=== PATIENT | male | born 1945 | race Caucasian/White ===

== ENCOUNTER 2019-12-20 14:11 | Inpatient (IN) ==
[2019-12-20] MEDS ORDERED: SODIUM CHLORIDE 0.9% 500 ML IV ONE (14:27)
[2019-12-20 14:50] LABS: INR 1.4 (0.9-1.1); Partial Thromboplastin Ratio 1.2; Partial Thromboplastin Time 33.5 Seconds (21.0-31.0); Prothrombin Time 14.2 Seconds (9.0-12.0)
[2019-12-20 14:51] LABS: Hematocrit (blood only) 32.9 % (42-52); Hemoglobin 11.2 g/dL (14.0-18.0); Mean Corpuscular Hemoglobin 31.2 pg (25-34); Mean Corpuscular Volume 91.6 fL (80-100); RDW Coefficient of Variation 16.1 % (11.5-14.5); RDW Standard Deviation 53.8 fL (36.4-46.3); Red Blood Count 3.59 M/uL (4.7-6.1); White Blood Count 5.58 K/uL (4.8-10.8)
[2019-12-20 14:53] LABS: Albumin Level 1.9 gm/dl (3.4-5.0); BUN Creatinine Ratio 13.4 (10-20); Bilirubin Direct 1.5 mg/dl (0-0.2); Calcium 8.4 mg/dl (8.5-10.1); Creatinine Clr Calc Pharmacy 51.7 ml/min; Est GFR (African American) 52.8; Est GFR (Non-African American) 45.5; Magnesium 1.5 mg/dl (1.8-2.4)
[2019-12-20 14:57] LABS: Albumin Globulin Ratio 0.5 (0.9-2); Bilirubin,Total 3.4 mg/dl (0.2-1); Globulin 3.7 gm/dl (2.5-4.0); Phosphorus 2.7 mg/dl (2.5-4.9); Total Protein 5.6 gm/dl (6.4-8.2); Troponin I 0.026 ng/ml (0-0.045)
[2019-12-20 15:02] LABS: Basophils # (auto) 0.01 K/uL (0-0.2); Basophils % (auto) 0.2 %; Eosinophils # (auto) 0.15 K/uL (0-0.5); Eosinophils % (auto) 2.7 %; Immature Granulocytes # (auto) 0.01 K/uL (0.00-0.02); Immature Granulocytes % (auto) 0.2 %; Lymphocytes % (auto) 17.9 %; Mean Platelet Volume 11.4 fL (7.4-10.4); Monocytes # (auto) 0.41 K/uL (0.11-0.59); Monocytes % (auto) 7.3 %; Neutrophils % (auto) 71.7 %; Platelet Count 66 K/uL (130-400); Platelet Estimate Decreased (Normal)
--- NOTE | 2019-12-20 15:03 | XRay Report ---
SINGLE VIEW CHEST CLINICAL HISTORY: Change in mental status. FINDINGS: An AP, portable, upright chest radiograph is obtained. No prior studies are available for c omparison at the time of dictation. The examination is degraded by portable technique and patient rot ation. The heart is enlarged noting atherosclerotic calcification of the thoracic aorta. The pulmona ry vasculature is noncongested. Atelectasis is seen at the lung bases. The lungs and pleural spaces a re otherwise clear. No pneumothorax is seen. The skeletal structures are osteopenic. The bony thorax is grossly intact. Cholecystectomy clips are noted in the right upper quadrant. IMPRESSION: Cardiomegaly with no acute cardiopulmonary abnormality. ACT 112: Negative or not required by law. Electronically signed by: Jostin Fung M.D. 12/20/2019 3:02 PM
[2019-12-20] MEDS ORDERED: OPTIRAY 320 125ml IV PRN (15:18)
--- NOTE | 2019-12-20 15:34 | CT Scan Report ---
CT angio neck with con HISTORY: Mental status change Stroke evaluation TECHNIQUE: Multiaxial CT angiography of the neck was performed IV contrast: 120 cc nonionic All darryl urements were calculated based on NASCET criteria. Maximum intensity projection images were also obt ained. A dose lowering technique was utilized adhering to the principles of ALARA. COMPARISON STUDY: None. FINDINGS: The aortic arch and proximal great vessels are widely patent. There is no significant sten osis, occlusion, or dissection identified within the bilateral common carotid, internal carotid, or v ertebral arteries. Minimal scattered plaque formation bilaterally primarily at the carotid bifurcations IMPRESSION: No significant stenosis, occlusion, or dissection identified within the carotid or vertebral arteries . Minimal scattered plaque formation ACT 112: Negative or not required by law. The above report was generated using voice recognition software. It may contain grammatical, syntax or spelling errors. Electronically signed by: Ronny Braxton M.D. 12/20/2019 3:33 PM
--- NOTE | 2019-12-20 15:38 | CT Scan Report ---
CT OF THE HEAD WITHOUT CONTRAST CLINICAL HISTORY: Stroke evaluation COMPARISON STUDY: No previous studies for comparison. TECHNIQUE: Helical axial images of the head were obtained without IV contrast. Automated exposure con trol was utilized for the study. A dose lowering technique was utilized adhering to the principles o f ALARA. FINDINGS: No acute intracranial hemorrhage, midline shift or mass effect is present. The ventricular system is unremarkable. The basilar cisterns are patent. There are old lacunar infarcts within the bi lateral cerebellar hemispheres. Note is made of a 1.5 cm hypodensity within the posterior left tempor al lobe on axial image 10 of 28. No extra-axial collections are present. There are no findings to sug gest acute dural sinus thrombosis or acute territorial infarct. No significant calvarial abnormalitie s are present. Visualized portions of the sinuses and mastoid air cells are clear. IMPRESSION: 1. No acute intracranial hemorrhage or mass effect. 2. 1.5 cm hypodensity within the posterior left temporal lobe. This could reflect a small age indeter minate infarct. 3. 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 ACT 112: Negative or not required by law. Electronically signed by: Bird Conroy M.D. 12/20/2019 3:36 PM
--- NOTE | 2019-12-20 15:39 | CT Scan Report ---
CT ANGIOGRAM OF THE BRAIN CLINICAL HISTORY: Strokelike symptoms. COMPARISON STUDY: Unenhanced CT of the brain performed concurrently on 12/20/2019. TECHNIQUE: Following the IV administration of 119 cc of Optiray 320, CT angiogram of the brain was pe rformed from the skull base to the vertex. Images are reviewed in the axial, sagittal, and coronal pl anes. 3-D MIPS images are created and assessed. IV contrast was administered without complication. A dose lowering technique was utilized adhering to the principles of ALARA. 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 Chronic lacunar infarcts are noted in the cerebellum. There is no hemorrh age, mass effect, or evidence of acute territorial ischemia by CT criteria. There is no evidence of e nhancing mass lesion on the angiogram phase images. No extra-axial fluid collection is seen. Whitman-whi te matter differentiation is preserved. Ventricles, sulci, and cisterns: Prominent secondary to involutional change. CT angiogram of the brain: There is atherosclerotic calcification of the cavernous carotid and verteb ral arteries. The internal carotid arteries are widely patent, as are the anterior and middle cerebra l arteries. The vertebrobasilar system and posterior cerebral arteries are widely patent. The left ve rtebral artery is dominant. There is no aneurysm, high-grade stenosis, or focal vessel cutoff identif ied throughout the intracranial circulation. Dural sinuses: Clear as visualized. Orbits: The bony orbits are intact. The orbital contents are normal as visualized noting bilateral oc ular lens implants. Sinuses and mastoids: The visualized paranasal sinuses are clear. There are small mastoid effusions. Calvarium: Unremarkable. IMPRESSION: 1. There is no hemorrhage, mass effect, or evidence of acute territorial ischemia by CT criteria noti ng angiographic phase technique. 2. Unremarkable CT angiogram of the brain. ACT 112: Negative or not required by law. Electronically signed by: Jostin Fung M.D. 12/20/2019 3:38 PM
[2019-12-20 15:51] LABS: Appearance Urine Clear (Clear); Bilirubin Urine Negative (Negative); Blood Urine Negative (Negative); Color Urine Yellow; Glucose Urine UA Negative (Negative); Ketones Urine Negative (Negative); Leukocyte Esterase Urine Negative (Negative); Nitrite Urine Negative (Negative); Protein Urine Negative (Negative); Specific Gravity Urine 1.015 (1.000-1.030); Urobilinogen Urine Negative (Negative); pH Urine 7.5 (4.5-7.5)
[2019-12-20] MEDS: MAGNESIUM SULFATE / D5W 1 GM/100 ML BAG IV SCH ×2 (16:01→16:24)
[2019-12-20] MEDS ORDERED: LACTULOSE SYRUP 30 GM/45 ML UDP PO STA (16:14)
--- NOTE | 2019-12-20 16:18 | Emergency Department Note ---
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 PLAN: Disposition: Admit MEDICAL DECISION MAKING: The patient is a pleasant 74-year-old gentleman with a past medical history of Lenz cirrhosis, hyperammonemia on lactulose, history of CVA presents emergency department accompanied by his for concern for increased confusion and difficulty with speech over the past 2 days while they have been at their camp over the past week. They are from several outings away and came to [facility] as they are the closest hospital from their camp that will take their insurance. Prior to this the reports the patient is being been feeling healthy and was doing well at camp until couple of days ago. The reports he has been only having 1 bowel movement a day despite being on lactulose. She denies any fevers, chills, cough, congestion, nausea, vomiting, diarrhea, urinary symptoms. They deny any known contacts with individuals diagnosed with COVID-19. On arrival the patient is in no acute distress, afebrile stable vital signs. He has no focal neuro deficits at this time but does exhibit slow processing and responses which the reports is not his nor mal. He does have subtle jaundice which the patient's reports is his baseline in the setting of his Lenz cirrhosis. EKG without evidence of acute ischemia. CXR negative. WBC within normal limits. H/H 11.2/32.9 and platelets 66K in the setting of the patient's history of Lenz cirrhosis without prior values for comparison. INR is 1.4 in the setting of the patient's cirrhosis. Creatinine 1.5 without prior values for comparison. Magnesium 1.5 with repletion provided. Electrolytes otherwise unremarkable. LFTs with a total bilirubin of 3.4 and direct bilirubin of 1.5 with AST 67 and alk phos 187 again without prior values for comparison. Patient's ammonia is 81 which certainly can be contributing to the patient's symptoms. Lactulose ordered. Troponin is 0.026, within normal limits. UA negative for infection. CT of the head and neck was performed and demonstrates old lacunar infarcts in bilateral cerebellar hemispheres but also a 1.5 cm hypodensity in the posterior left temporal lobe that reflects a small age-indeterminate infarct which given the patient's symptoms over the past week could also be a contributing factor. Given this, reasonable to admit the patient for further evaluation. The patient and his are agreeable with this plan. Case was discussed with Dr. Ocampo, [facility] hospitalist, who will evaluate the patient for admission. Triage Nursing notes reviewed and agree them. Additional history obtained from Prior medical records reviewed Vital Signs: reviewed and remarkable for no significant abnormalities Differential diagnosis: Infection, dehydration, metabolic abnormality, hypo/hyperglycemia, electrolyte disturbance, anemia, hypoxia, cardiac sources, intracerebral event, toxicologic, neurologic, as well as other pathologies. ER treatment provided: See below. Diagnostics interpreted by me: ECG: Normal sinus rhythm, 65 bpm, no ectopy, no overt ST elevation or depression, QTC 428, QRS 80. Cardiac Monitoring: An order for continuous cardiac monitoring was placed and demonstrated normal sinus rhythm, 65 bpm, no ectopy. Laboratory studies: See below Imaging studies: SINGLE VIEW CHEST CLINICAL HISTORY: Change in mental status. FINDINGS: An AP, portable, upright chest radiograph is obtained. No prior s tudies are available for comparison at the time of dictation. The examination is degraded by portable technique and patient rotation. The heart is enlarged noting atherosclerotic calcification of the thoracic aorta. The pulmonary vasculature is noncongested. Atelectasis is seen at the lung bases. The lungs and pleural spaces are otherwise clear. No pneumothorax is seen. The skeletal structures are osteopenic. The bony thorax is grossly intact. Cholecystectomy clips are noted in the right upper quadrant. IMPRESSION: Cardiomegaly with no acute cardiopulmonary abnormality. -- CT OF THE HEAD WITHOUT CONTRAST CLINICAL HISTORY: Stroke evaluation COMPARISON STUDY: No previous studies for comparison. TECHNIQUE: Helical axial images of the head were obtained without IV contrast. Automated exposure control was utilized for the study. A dose lowering technique was utilized adhering to the principles of ALARA. FINDINGS: No acute intracranial hemorrhage, midline shift or mass effect is pre sent. The ventricular system is unremarkable. The basilar cisterns are patent. There are old lacunar infarcts within the bilateral cerebellar hemispheres. Note is made of a 1.5 cm hypodensity within the posterior left temporal lobe on axial image 10 of 28. No extra-axial collections are present. There are no findings to suggest acute dural sinus thrombosis or acute territorial infarct. No signific ant calvarial abnormalities are present. Visualized portions of the sinuses and mastoid air cells are clear. IMPRESSION: 1. No acute intracranial hemorrhage or mass effect. 2. 1.5 cm hypodensity within the posterior left temporal lobe. This could reflect a small age indeterminate infarct. 3. 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 -- CT ANGIOGRAM OF THE BRAIN CLINICAL HISTORY: Strokelike symptoms. COMPARISON STUDY: Unenhanced CT of the brain performed concurrently on 12/20/2019. TECHNIQUE: Following the IV administration of 119 cc of Optiray 320, CT angiogram of the brain was performed from the skull base to the vertex. Images are reviewed in the axial, sagittal, and coronal planes. 3-D MIPS images are created and assessed. IV contrast was administered without complication. A dose lowering technique was utilized adhering to the principles of ALARA. CT DOSE: 1137.12 mGy.cm FINDINGS: Brain parenchyma: There is age-related involutional change noting mild subcortical and periventricular microangiopathic disease. Chronic lacunar infarcts are noted in the cerebellum. There is no hemorrhage, mass effect, or evidence of acute territorial ischemia by CT criteria. There is no evidence of enhancing mass lesion on the angiogram phase images. No extra-axial fluid collection is seen. Whitman-white matter differentiation is preserved. Ventricles, sulci, and cisterns: Prominent secondary to involutional change. CT angiogram of the brain: There is atherosclerotic calcification of the cavernous carotid and vertebral arteries. The internal carotid arteries are widely patent, as are the anterior and middle cerebral arteries. The vertebrobasilar system and posterior cerebral arteries are widely patent. The left vertebral artery is dominant. There is no aneurysm, high-grade stenosis, or focal vessel cutoff identified throughout the intracranial circulation. Dural sinuses: Clear as visualized. Orbits: The bony orbits are intact. The orbital contents are normal as visualized noting bilateral ocular lens implants. Sinuses and mastoids: The visualized paranasal sinuses are clear. There are small mastoid effusions. Calvarium: Unremarkable. IMPRESSION: 1. There is no hemorrhage, mass effect, or evidence of acute territorial ischemia by CT criteria noting angiographic phase technique. 2. Unremarkable CT angiogram of the brain. -- CT angio neck with con HISTORY: Mental status change Stroke evaluation TECHNIQUE: Multiaxial CT angiography of the neck was performed IV contrast: 120 cc nonionic All measurements were calculated based on NASCET criteria. Maximum intensity projection images were also obtained. A dose lowering technique was utilized adhering to the principles of ALARA. COMPARISON STUDY: None. FINDINGS: The aortic arch and proximal great vessels are widely patent. There is no significant stenosis, occlusion, or dissection identified within the bilateral common carotid, internal carotid, or vertebral arteries. Minimal scattered plaque formation bilaterally primarily at the carotid bifurcations IMPRESSION: No significant stenosis, occlusion, or dissection identified within the carotid or vertebral arteries. Minimal scattered plaque formation Consultation(s): Case was discussed with Dr. Ocampo, [facility] hospitalist, who will evaluate the patient for admission. HPI: The patient is a pleasant 74-year-old gentleman with a past medical history of Lenz cirrhosis, hyperammonemia on lactulose, history of CVA presents emergency department accompanied by his for concern for increased confusion and difficulty with speech over the past 2 days while they have been at their camp over the past week. They are from several outings away and came to [facility] as they are the closest hospital [place] that will take their insurance. Prior to this the reports the patient is being been feeling healthy and was doing well at camp until couple of days ago. The reports he has been only having 1 bowel movement a day despite being on lactulose. She denies any fevers, chills, cough, congestion, nausea, vomiting, diarrhea, urinary symptoms. They deny any known contacts with individuals diagnosed with COVID-19. ROS: See above HPI for pertinent positives & negatives. A total of 10 systems reviewed and were otherwise negative. PAST MEDICAL HISTORY:See Below PAST SURGICAL HISTORY:See Below FAMILY HISTORY:See Below SOCIAL HISTORY:See Below HOME MEDICATIONS:See Below ALLERGIES:See Below VITALS:See Below PHYSICAL EXAMINATION: GENERAL: Awake, alert, Chronically ill-appearing, in no distress HENT: Normocephalic, atraumatic. Oropharynx with dry mucous membranes and otherwise unremarkable. EYES: Normal conjunctiva. Mild icterus. EOMI. No nystamgus. PEARRL. NECK: Supple. No nuchal rigidity. FROM. No JVD. RESPIRATORY: Clear to auscultation. CARDIAC: Regular rate, normal rhythm. Extremities warm and well perfused. Pulses equal. ABDOMEN: Soft, non-distended. No tenderness to palpation. No rebound or guarding. No masses. RECTAL: Deferred. MUSCULOSKELETAL: Chest examination reveals no tenderness. The back is symmetrical on inspection without obvious abnormality. There is no CVA tenderness to palpation. No joint edema. LOWER EXTREMITIES: Calves are equal size bilaterally and non-tender. 2+ BLE pitting edema. No discoloration. NEURO: No focal sensory or motor deficits noted. He does have slow mental processing and is slow to respond but does not have any overt dysarthria or word finding difficulty. There is subtle asterixis of bilateral upper extremities. SKIN: Mild Jaundice No rash noted. Buddy Proctor MD Past Med/Surg History Medical History Diabetes History of CVA (cerebrovascular accident) LENZ (nonalcoholic steatohepatitis) Social History Preferred Language: Ecuadorean Communication Ability: Effective Choker Setter Required: No Beliefs That Will Affect Care: None Current Living Situation: Spouse Other Information That Helps Us Care for You: No Feels Safe at Home: Yes Safety Concerns: Feels Safe At This Time Smoking Status: Never smoker Do You Dip or Chew Tobacco: No ; Second Hand Exposure: No ; Tobacco Cessation Education Requested by Patient: No Hx Alcohol Use: No Hx Substance Use: No Allergies Allergies Allergy/AdvReac Type Severity Reaction Status Date / Time pollen extracts Allergy Intermediate ITCHY Verified 12/20/19 15:10 EYES, SNEEZING, CONGESTION rofecoxib [From Vioxx] Allergy Unknown COULDN'T Verified 12/20/19 15:10 REMEMBER morphine AdvReac Intermediate Vomiting Verified 12/20/19 15:10 Home Meds Home Medications Medication Instructions Recorded Confirmed aspirin [Aspir-81] 81 mg PO DAILY 12/20/19 12/20/19 atorvastatin 20 mg PO HS 12/20/19 12/20/19 esomeprazole magnesium [Nexium] 0 mg PO DAILY 12/20/19 12/20/19 ferrous sulfate 325 mg PO DAILY 12/20/19 12/20/19 furosemide 40 mg PO DAILY 12/20/19 12/20/19 insulin asp prt-insulin aspart 24 unit SUBCUT BID 12/20/19 12/20/19 [Novolog Mix 70-30FlexPen U-100] insulin aspart U-100 [Novolog 0 unit SUBCUT AC 12/20/19 12/20/19 Flexpen U-100 Insulin] lactulose 45 ml PO ACHS 12/20/19 12/20/19 loratadine [Allergy Relief 10 mg PO DAILY 12/20/19 12/20/19 (loratadine)] magnesium oxide 400 mg PO DAILY 12/20/19 12/20/19 multivitamin 1 tab PO DAILY 12/20/19 12/20/19 potassium chloride 10 meq PO DAILY 12/20/19 12/20/19 rifaximin [Xifaxan] 550 mg PO BID 12/20/19 12/20/19 spironolactone 50 mg PO DAILY 12/20/19 12/20/19 Results & Data (ED) Vital Signs Vital Signs - 24 hr 12/20/19 14:25 12/20/19 15:00 12/20/19 16:04 Temperature 36.8 C Temperature Source Oral Pulse Rate 71 66 66 Pulse Rate from SpO2 Sensor 65 Respiratory Rate 18 11 L 11 L Respiratory Effort / Characteristics Non-Labored Spontaneous Respiratory Depth Normal Respiratory Pattern Regular Blood Pressure 113/70 115/75 124/71 Blood Pressure Mean 84 88 91 Blood Pressure Position Lying Pulse Oximetry 97 99 Oxygen Delivery Method Room Air Sepsis Recent Fever Within 48 Hours No Sepsis New/Unexplained Change in Mental Status No Sepsis Action Taken by Nursing No Action Required Laboratory Data Attestation: I reviewed the patient's lab results. Result diagrams: 12/20/19 13:30 12/20/19 13:30 Lab Results 12/20/19 12/20/19 12/20/19 Range/Units 13:30 13:30 13:30 WBC 5.58 (4.8-10.8) K/uL RBC 3.59 L (4.7-6.1) M/uL Hgb 11.2 L (14.0-18.0) g/dL Hct 32.9 L (42-52) % MCV 91.6 (80-100) fL MCH 31.2 (25-34) pg MCHC 34.0 (32-36) g/dL RDW Std Deviation 53.8 H (36.4-46.3) fL RDW Coeff of Harmony 16.1 H (11.5-14.5) % Plt Count 66 L (130-400) K/uL MPV 11.4 H (7.4-10.4) fL Immature Gran % (Auto) 0.2 % Neut % (Auto) 71.7 % Lymph % (Auto) 17.9 % [place] % (Auto) 7.3 % Eos % (Auto) 2.7 % Baso % (Auto) 0.2 % Neut # (Auto) 4.00 (1.4-6.5) K/uL Lymph # (Auto) 1.00 L (1.2-3.4) K/uL [place] # (Auto) 0.41 (0.11-0.59) K/uL Eos # (Auto) 0.15 (0-0.5) K/uL Baso # (Auto) 0.01 (0-0.2) K/uL Immature Gran # (Auto) 0.01 (0.00-0.02) K/uL Platelet Estimate Decreased L (Normal) PT 14.2 H (9.0-12.0) Seconds INR 1.4 H (0.9-1.1) APTT 33.5 H (21.0-31.0) Seconds PTT Ratio 1.2 Sodium 134 L (136-145) mmol/L Potassium 5.0 (3.5-5.1) mmol/L Chloride 106 (98-107) mmol/L Carbon Dioxide 21 (21-32) mmol/L Anion Gap 7.0 (3-11) BUN 20 H (7-18) mg/dl Creatinine 1.50 H (0.6-1.4) mg/dl Est Cr Clr Drug Dosing 51.7 ml/min Est GFR ( Amer) 52.8 Est GFR (Non-Af Amer) 45.5 BUN/Creatinine Ratio 13.4 (10-20) Glucose 185 H (70-99) mg/dl Calcium 8.4 L (8.5-10.1) mg/dl Phosphorus 2.7 (2.5-4.9) mg/dl Magnesium 1.5 L (1.8-2.4) mg/dl Total Bilirubin 3.4 H (0.2-1) mg/dl Direct Bilirubin 1.5 H (0-0.2) mg/dl AST 67 H (15-37) U/L ALT 38 (12-78) U/L Alkaline Phosphatase 187 H (45-117) U/L Ammonia (11-32) umol/L Troponin I 0.026 (0-0.045) ng/ml Total Protein 5.6 L (6.4-8.2) gm/dl Albumin 1.9 L (3.4-5.0) gm/dl Globulin 3.7 (2.5-4.0) gm/dl Albumin/Globulin Ratio 0.5 L (0.9-2) Urine Color Urine Appearance (Clear) Urine pH (4.5-7.5) Ur Specific [place] (1.000-1.030) Urine Protein (Negative) Urine Glucose (UA) (Negative) Urine Ketones (Negative) Urine Blood (Negative) Urine Nitrite (Negative) Urine Bilirubin (Negative) Urine Urobilinogen (Negative) Ur Leukocyte Esterase (Negative) 12/20/19 12/20/19 Range/Units 15:29 15:42 WBC (4.8-10.8) K/uL RBC (4.7-6.1) M/uL Hgb (14.0-18.0) g/dL Hct (42-52) % MCV (80-100) fL MCH (25-34) pg MCHC (32-36) g/dL RDW Std Deviation (36.4-46.3) fL RDW Coeff of Harmony (11.5-14.5) % Plt Count (130-400) K/uL MPV (7.4-10.4) fL Immature Gran % (Auto) % Neut % (Auto) % Lymph % (Auto) % [place] % (Auto) % Eos % (Auto) % Baso % (Auto) % Neut # (Auto) (1.4-6.5) K/uL Lymph # (Auto) (1.2-3.4) K/uL [place] # (Auto) (0.11-0.59) K/uL Eos # (Auto) (0-0.5) K/uL Baso # (Auto) (0-0.2) K/uL Immature Gran # (Auto) (0.00-0.02) K/uL Platelet Estimate (Normal) PT (9.0-12.0) Seconds INR (0.9-1.1) APTT (21.0-31.0) Seconds PTT Ratio Sodium (136-145) mmol/L Potassium (3.5-5.1) mmol/L Chloride (98-107) mmol/L Carbon Dioxide (21-32) mmol/L Anion Gap (3-11) BUN (7-18) mg/dl Creatinine (0.6-1.4) mg/dl Est Cr Clr Drug Dosing ml/min Est GFR ( Amer) Est GFR (Non-Af Amer) BUN/Creatinine Ratio (10-20) Glucose (70-99) mg/dl Calcium (8.5-10.1) mg/dl Phosphorus (2.5-4.9) mg/dl Magnesium (1.8-2.4) mg/dl Total Bilirubin (0.2-1) mg/dl Direct Bilirubin (0-0.2) mg/dl AST (15-37) U/L ALT (12-78) U/L Alkaline Phosphatase (45-117) U/L Ammonia 81.8 H (11-32) umol/L Troponin I (0-0.045) ng/ml Total Protein (6.4-8.2) gm/dl Albumin (3.4-5.0) gm/dl Globulin (2.5-4.0) gm/dl Albumin/Globulin Ratio (0.9-2) Urine Color Yellow Urine Appearance Clear (Clear) Urine pH 7.5 (4.5-7.5) Ur Specific [place] 1.015 (1.000-1.030) Urine Protein Negative (Negative) Urine Glucose (UA) Negative (Negative) Urine Ketones Negative (Negative) Urine Blood Negative (Negative) Urine Nitrite Negative (Negative) Urine Bilirubin Negative (Negative) Urine Urobilinogen Negative (Negative) Ur Leukocyte Esterase Negative (Negative) Administered Medications Atorvastatin Calcium (Lipitor) 40 mg PO [facility] Stop: 01/19/20 20:59 Last Admin: 12/20/19 22:28 Dose: 40 mg Documented by: [id number] Insulin Aspart (Novolog Flexpen) 0 units SC [facility] Stop: 01/19/20 20:59 Last Admin: 12/20/19 22:28 Dose: 14 units Documented by: [id number] Cosigned by: [id number] Lactulose (Chronulac) 30 gm PO [facility] Stop: 01/19/20 20:59 Last Admin: 12/20/19 22:28 Dose: 30 gm Documented by: [id number] Rifaximin (Xifaxan) 550 mg PO BID [facility] Stop: 01/19/20 20:59 Last Admin: 12/20/19 22:28 Dose: 550 mg Documented by: [id number] Discontinued Medications Sodium Chloride (Nss) 500 mls @ 999 mls/hr IV .Q31M ONE Stop: 12/20/19 14:57 Last Infusion: 12/20/19 16:00 Dose: 0 mls/hr Documented by: [id number] Admin: 12/20/19 15:07 Dose: 999 mls/hr Documented by: [id number] Magnesium Sulfate/Dextrose (Magnesium Sulfate / D5w) 1 gm in 100 mls @ 100 mls/hr IV Q1H [facility] Stop: 12/20/19 17:36 Last Infusion: 12/20/19 18:44 Dose: 0 mls/hr Documented by: [id number] Admin: 12/20/19 16:24 Dose: 100 mls/hr Documented by: [id number] Infusion: 12/20/19 16:24 Dose: 100 mls/hr Documented by: [id number] Admin: 12/20/19 16:01 Dose: 100 mls/hr Documented by: [id number] Insulin Glargine (Lantus Solostar Pen) 15 units SC TODAY@2100 [place] Stop: 12/20/19 21:01 Last Admin: 12/20/19 22:39 Dose: 15 units Documented by: [id number] Cosigned by: [id number] Ioversol (Optiray 320 125ml) 119 ml IV ONCE PRN PRN Reason: Interaction Checking Stop: 12/24/19 15:17 Last Admin: 12/20/19 15:18 Dose: 119 ml Documented by: [id number] Lactulose (Chronulac) 30 gm PO NOW STA Stop: 12/20/19 16:15 Last Admin: 12/20/19 16:29 Dose: 30 gm Documented by: [id number] Blood Pressure Blood Pressure Findings: Normal blood pressure Discharge Plan Visit Data *Final* Discharge Date/Time: 12/20/19 18:26 Chief Complaint: Confusion ED Provider: Buddy Proctor Discharge Problem: Hyperammonemia, Acute confusion, Slow rate of speech, 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
--- NOTE | 2019-12-20 16:23 | Electrocardiogram Report ---
Test Reason : Blood Pressure : / mmHG Vent. Rate : 065 BPM Atrial Rate : 065 BPM P-R Int : 208 ms QRS Dur : 080 ms QT Int : 412 ms P-R-T Axes : 027 -07 028 degrees QTc Int : 428 ms Normal sinus rhythm Normal ECG No previous ECGs available Confirmed by Sherif Moon ([id number]) on 12/20/2019 4:23:05 PM Referred By: REFERRED SELF Confirmed By:Sherif Moon
--- NOTE | 2019-12-20 16:30 | History & Physical Report ---
Date of Service December 20, 2019 Assessment & Plan (1) Encephalopathy: Patient is brought in with encephalopathy having decreased functioning at home. This could be multifactorial being metabolic encephalopathy from hyperammonemia from his chronic liver disease could be from his stroke certainly concern for infectious etiologies have been evaluated with a negative urinalysis and negative chest x-ray on presentation and negative clinical examination. Will determine if these improve will he reduce his ammonia and further gain information about this possible age-indeterminate stroke seen on CT scan. (2) CVA (cerebral vascular accident): Patient will be admitted on the stroke order set. This will be non-TPA stroke order set given he is out of the timeframe. This 1.5 cm age- indeterminate lesion be further evaluated by MRI scan. At this time is maintained on baby aspirin ~can further identify if this is an acute stroke or not. Secondary risk prevention with atorvastatin will increase to 40 cautiously in the face of his liver disease (3) LOMBARDO (nonalcoholic steatohepatitis): Patient reportedly with less stool output than usual and ammonia level is elevated. Patient will be continued on Xifaxan 550 twice daily Spironolactone 50 a day will increase his lactulose to 45 4 times a day reliably and then increase it if he does not have bowel movements. We will watch his ammonia daily. Patient is elevation of his INR at baseline 1.4. He also has elevation of both direct and indirect bilirubin. Given his chronic liver disease he will have a hepatic Doppler look for hepatic vein thrombosis if his INR does creep upward he may require some vitamin K he is also thrombocytopenic which could be from his chronic liver disease and splenomegaly. (4) Diabetes: Patient be on basal bolus insulin with glycemic consult and A1c checked in the morning Patient typically takes 70/30 insulin 24 units twice daily with a sliding scale on top of this. 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 The reports he has been only having 1 bowel movement a day despite being on lactulose. She denies any fevers, chills, cough, congestion, nausea, vomiting, diarrhea, urinary symptoms. They deny any known contacts with individuals diagnosed with COVID-19. Patient is also diabetic typically taking 70/30 insulin 24 units twice daily with sliding scale NovoLog on top of this He does have subtle jaundice which the patient's reports is his baseline in the setting of his Lombardo cirrhosis. Patient has an ammonia level of 81 does not know his normal baseline level. . UA negative for infection. CT of the head and neck was performed and demonstrates old lacunar infarcts in bilateral cerebellar hemispheres but also a 1.5 cm hypodensity in the posterior left temporal lobe that reflects a small age-indeterminate infarct which given the patient's symptoms over the past week could also be a contributing factor. Allergies Allergy/AdvReac Type Severity Reaction Status Date / Time pollen extracts Allergy Intermediate ITCHY Verified 12/20/19 15:10 EYES, SNEEZING, CONGESTION rofecoxib [From Vioxx] Allergy Unknown COULDN'T Verified 12/20/19 15:10 REMEMBER morphine AdvReac Intermediate Vomiting Verified 12/20/19 15:10 Home Medications Home Medications Medication Instructions Recorded Confirmed Type aspirin [Aspir-81] 81 mg PO DAILY 12/20/19 12/20/19 History atorvastatin 20 mg PO HS 12/20/19 12/20/19 History esomeprazole magnesium [Nexium] 0 mg PO DAILY 12/20/19 12/20/19 History ferrous sulfate 325 mg PO DAILY 12/20/19 12/20/19 History furosemide 40 mg PO DAILY 12/20/19 12/20/19 History insulin asp prt-insulin aspart 24 unit SUBCUT BID 12/20/19 12/20/19 History [Novolog Mix 70-30FlexPen U-100] insulin aspart U-100 [Novolog 0 unit SUBCUT AC 12/20/19 12/20/19 History Flexpen U-100 Insulin] lactulose 45 ml PO ACHS 12/20/19 12/20/19 History loratadine [Allergy Relief 10 mg PO DAILY 12/20/19 12/20/19 History (loratadine)] magnesium oxide 400 mg PO DAILY 12/20/19 12/20/19 History multivitamin 1 tab PO DAILY 12/20/19 12/20/19 History potassium chloride 10 meq PO DAILY 12/20/19 12/20/19 History rifaximin [Xifaxan] 550 mg PO BID 12/20/19 12/20/19 History spironolactone 50 mg PO DAILY 12/20/19 12/20/19 History Past Med/Surg History Medical History (Updated 12/20/19 @ 16:29 by Kayden Ocampo MD) Diabetes Social History Feels Safe at Home: Yes Smoking Status: Never smoker Review of Systems Review of Systems: Mild distress and fatigue no headache, blurry or double vision no speech or swallowing issues no chest pain, pressure or palpitations no shortness of breath, cough or wheezes no abdominal pain, nausea or vomiting, diarrhea or constipation no dysuria, hematuria or frequency no focal joint pain or swelling no back pain, CVA tenderness or radicular pain no bruising, bleeding or rashes no focal signs of weakness or numbness or altered sensation no complaints or anxiety or depression.. Physical Exam Physical Exam: The patient appeared well nourished and normally developed. Vital signs as documented. Head exam is normocephalic atraumatic no scleral icterus Neck is without JVD, thyromegaly, or carotid bruits. Lungs are clear to auscultation, no focal loss of breath sounds Cardiac exam, Rhythm is regular.. No murmurs, rubs or gallops. Abdominal exam reveals normal bowel sounds, soft non tender, no masses Extremities are nonedematous and both pedal pulses are normal. Neurologic exam is alert and oriented, no focal loss of strength or sensation Skin is without bruises or rashes Psychologically is without concerns for anxiety or depression Results & Data Results & Data ([facility]) Vital Signs (Past 12 Hours) Vital Signs Temp Pulse Resp BP Pulse Ox 12/20/19 14:25 98.2 F 71 18 113/70 97 PG Care Time/CCT Total # of Minutes Spent Total Time Spent with Patient: Total time spent is greater than 50% in coordination of care (as documented) at patient's floor/unit and/or counseling patient: Coding Level of Care Code 15542 Initial Inpt Care Lvl 3 Diagnoses Encephalopathy G93.40 CVA (cerebral vascular accident) I63.9 LOMBARDO (nonalcoholic steatohepatitis) K75.81 Diabetes E11.9 DVT prophylaxis Z29.9
[2019-12-20] MEDS ORDERED: DEXTROSE 50% 50 ML SYRINGE IV PRN (18:42)
[2019-12-20] MEDS ORDERED: ONDANSETRON INJ 2 MG/ML 2 ML VIAL IV PRN (18:42)
[2019-12-20] MEDS ORDERED: GLUCOSE 10 TABS/TUBE PO PRN (18:42)
[2019-12-20] MEDS ORDERED: GLUCAGON FOR INJ 1 MG VIAL SQ PRN (18:42)
[2019-12-20] MEDS ORDERED: SODIUM CHLORIDE 0.9% 1000ML 1,000 ML IV SCH (18:42)
[2019-12-20] MEDS ORDERED: ALUMINUM/MAGNESIUM SUSP 30 ML UDC PO PRN (18:42)
[2019-12-20] MEDS ORDERED: GLUCOSE 40% GEL 15 GM TUBE PO PRN (18:42)
[2019-12-20] MEDS ORDERED: PHARMACIST DISCHARGE MED REC CONSULT PRN (18:42)
[2019-12-20] MEDS ORDERED: CARBOHYDRATES FOR HYPOGLYCEMIA PO PRN (18:42)
[2019-12-20] MEDS ORDERED: PHARMACY GLYCEMIC MGMT CONSULT PRN (18:50)
[2019-12-20] MEDS ORDERED: INSULIN GLARGINE SOLOSTAR 100 UNITS/ML 3 ML PEN SC SCH ×2 (21:00)
[2019-12-20] MEDS: RIFAXIMIN 550 MG TABLET PO SCH (22:28)
[2019-12-20] MEDS: LACTULOSE SYRUP 30 GM/45 ML UDP PO SCH (22:28)
[2019-12-20] MEDS: ATORVASTATIN 40 MG TAB PO SCH (22:28)
[2019-12-20] MEDS: INSULIN ASPART 100 UNITS/ML 3 ML PEN SC SCH (22:28)
[2019-12-21] MEDS ORDERED: INSULIN ASPART 100 UNITS/ML 3 ML PEN SC SCH (04:00)
[2019-12-21 05:54] LABS: Estimated Average Glucose 315 mg/dl; Hemoglobin A1C 12.6 % (4.5-5.6)
[2019-12-21 06:40] LABS: Hematocrit (blood only) 28.6 % (42-52); Hemoglobin 10.1 g/dL (14.0-18.0); Mean Corpuscular Hemoglobin 31.8 pg (25-34); Mean Corpuscular Hgb Conc 35.3 g/dL (32-36); Mean Corpuscular Volume 89.9 fL (80-100); RDW Coefficient of Variation 16.1 % (11.5-14.5); RDW Standard Deviation 52.6 fL (36.4-46.3); Red Blood Count 3.18 M/uL (4.7-6.1); White Blood Count 4.74 K/uL (4.8-10.8)
[2019-12-21 06:43] LABS: Mean Platelet Volume 10.2 fL (7.4-10.4); Platelet Count 56 K/uL (130-400)
[2019-12-21 06:51] LABS: INR 1.4 (0.9-1.1); Prothrombin Time 14.4 Seconds (9.0-12.0)
[2019-12-21 07:10] LABS: Basophils # (auto) 0.02 K/uL (0-0.2); Basophils % (auto) 0.4 %; Eosinophils # (auto) 0.18 K/uL (0-0.5); Eosinophils % (auto) 3.8 %; Immature Granulocytes # (auto) 0.01 K/uL (0.00-0.02); Immature Granulocytes % (auto) 0.2 %; Lymphocytes # (auto) 1.28 K/uL (1.2-3.4); Monocytes # (auto) 0.41 K/uL (0.11-0.59); Monocytes % (auto) 8.6 %; Neutrophils # (auto) 2.84 K/uL (1.4-6.5)
[2019-12-21 07:12] LABS: BUN Creatinine Ratio 13.9 (10-20); Creatinine Clr Calc Pharmacy 52.6 ml/min; Est GFR (Non-African American) 47.4; Potassium 4.8 mmol/L (3.5-5.1)
[2019-12-21 07:25] LABS: Estimated Average Glucose 315 mg/dl; Hemoglobin A1C 12.6 % (4.5-5.6)
[2019-12-21] MEDS: INSULIN ASPART 100 UNITS/ML 3 ML PEN SC SCH ×4 (08:18→21:14)
[2019-12-21] MEDS: LACTULOSE SYRUP 30 GM/45 ML UDP PO SCH ×4 (08:19→21:12)
[2019-12-21] MEDS: FUROSEMIDE 40 MG TAB PO SCH (08:19)
[2019-12-21] MEDS: FERROUS SULFATE 325 MG TAB PO SCH (08:19)
[2019-12-21] MEDS: SPIRONOLACTONE 25 MG TAB PO SCH (08:19)
[2019-12-21] MEDS: RIFAXIMIN 550 MG TABLET PO SCH ×2 (08:19→21:12)
[2019-12-21] MEDS: MULTIVITAMIN TAB PO SCH (08:19)
[2019-12-21] MEDS: ASPIRIN 81 MG ECTAB PO SCH (08:19)
[2019-12-21] MEDS: PANTOprazole 40 MG TAB PO SCH (08:20)
[2019-12-21] MEDS: MAGNESIUM OXIDE 400 MG TAB PO SCH (08:20)
[2019-12-21] MEDS: INSULIN HUMAN NPH SC SCH ×2 (08:46→16:56)
[2019-12-21] MEDS ORDERED: INSULIN GLARGINE SOLOSTAR 100 UNITS/ML 3 ML PEN SC SCH (09:00)
--- NOTE | 2019-12-21 09:10 | Magnetic Resonance Report ---
MRI OF THE BRAIN WITHOUT CONTRAST CLINICAL HISTORY: Abnormal CT scan. Altered mental status. COMPARISON STUDY: Head CT and CTA of the head December 20, 2019 TECHNIQUE: Utilizing a 1.5 Vida magnet and dedicated coil, multiplanar, multiecho imaging of the bra in was performed without IV contrast. FINDINGS: Note is made of a 6 mm hyperintense focus within the right central aspect of the tian shown on axial diffusion-weighted sequence image 7 of 46. Correlation with ADC map is difficult given its small size but this likely reflects a small acute to subacute infarct. There is corresponding T2 hype rintensity. No additional foci of restricted diffusion are noted. Ventricular system is unremarkable. Basilar cisterns are patent. There are no extra axial collections. 1.8 cm T2 hyperintense focus with in the posterior left temporal lobe corresponds to the finding on prior head CT. This contains a hypo intense focus on the gradient echo sequence suggestive of minimal old blood product. This represents an old infarct. There are old lacunar infarcts within the cerebellar hemispheres. Flow-voids for the major intracranial vessels are present. Note is made of moderate atrophy. Deep white matter T2 hyperi ntense foci suggest small vessel disease. There are scattered subcortical T2 hyperintense foci as wel l. IMPRESSION: 1. 6 mm focus of signal abnormality within the right aspect of the tian. This suggests a small acute to subacute pontine infarct. 2. 1.8 cm T2 hyperintense focus within the posterior left temporal lobe which corresponds to the find ing on prior head CT. This represents an old infarct with minimal old blood products. 3. Multiple subcortical white matter T2 hyperintense foci. These are indeterminate but probably refle ct old infarcts. 4. Multiple old infarcts within the bilateral cerebral hemispheres. ACT 112: Negative or not required by law. Electronically signed by: Bird Conroy M.D. 12/21/2019 9:09 AM
--- NOTE | 2019-12-21 09:20 | Neurology Consultation ---
Date of Consultation December 21, 2019 Assessment & Plan (1) CVA (cerebral vascular accident): Acute/subacute appearing ischemic infarct within the right tian. Patient does have mild left lower extremity weakness which is likely related to this ischemic infarct. His speech is not significantly dysarthric or aphasic but rather seems to be moderately slowed and may be related to his acute infarct, multi-infarct state, and acute on chronic hepatic encephalopathy. He is thrombocytopenic and appears to have a tendency for easy bleeding. I would continue with daily low-dose aspirin for secondary stroke prevention rather than switching to clopidogrel at this time. Continue with atorvastatin. His diabetes mellitus will need improved control. He is normotensive without antihypertensive therapy, continue to monitor blood pressure. Patient should have a transthoracic echocardiogram completed. PT/OT/speech therapy (2) Encephalopathy: Acute on chronic encephalopathy likely related to chronic liver disease/hyperammonemia, further confounded by multi-infarct state and acute/subacute infarct. Continue with lactulose and other medications directed at Lenz cirrhosis, hyperammonemia. He does not have asterixis. No signs or symptoms suggestive of recent head injury, seizures or syncope. No need for EEG at this time. Thank you for the consult, please contact me if I may be of further assistance. History of Present Illness Reason for Consultation: Stroke Requesting Physician: Kayden Ocampo MD Attending Physician: Kayden Ocampo MD History of Present Illness The patient is a 74-year-old male who presented to the emergency department yesterday with his spouse with a chief complaint of confusion and speech difficulty which have been present for 2 days. They have been residing at their camp for the past week. Past medical history notable for Lenz cirrhosis, hyperammonemia on lactulose, and insulin-dependent diabetes mellitus. His outpatient medication regimen also includes daily low-dose aspirin and atorvastatin. He is a non-smoker. He has been modestly inattentive and slow to respond to questions and commands. He has also displayed some mild left-sided weakness. He is an unreliable historian in the context of what appears to be a mild to moderate encephalopathy. There is no report of recent seizures, syncope, or head injury. His blood pressure has been normal. An ammonia level is elevated. An initial CT of the head suggested a possible subacute posterior left temporal lobe infarct as well as multiple old lacunar infarcts. CT angiography of the head and neck unremarkable. A brain MRI was completed as well which per my review reveals a small acute to subacute ischemic infarct within the right tian. There is an area of chronic ischemic gliosis within the left temporal lobe corresponding to the abnormality seen on CT of the head. There is a chronic right cerebellar infarct and chronic cerebrovascular disease per my review as well. The radiology report is not available at this time. Lactulose and low-dose aspirin have been continued, his atorvastatin dosage was increased. Family history: Noncontributory Allergies Allergy/AdvReac Type Severity Reaction Status Date / Time pollen extracts Allergy Intermediate ITCHY Verified 12/20/19 15:10 EYES, SNEEZING, CONGESTION rofecoxib [From Vioxx] Allergy Unknown COULDN'T Verified 12/20/19 15:10 REMEMBER morphine AdvReac Intermediate Vomiting Verified 12/20/19 15:10 Home Medications Home Medications Medication Instructions Recorded Confirmed Type aspirin [Aspir-81] 81 mg PO DAILY 12/20/19 12/20/19 History atorvastatin 20 mg PO HS 12/20/19 12/20/19 History esomeprazole magnesium [Nexium] 0 mg PO DAILY 12/20/19 12/20/19 History ferrous sulfate 325 mg PO DAILY 12/20/19 12/20/19 History furosemide 40 mg PO DAILY 12/20/19 12/20/19 History insulin asp prt-insulin aspart 24 unit SUBCUT BID 12/20/19 12/20/19 History [Novolog Mix 70-30FlexPen U-100] insulin aspart U-100 [Novolog 0 unit SUBCUT AC 12/20/19 12/20/19 History Flexpen U-100 Insulin] lactulose 45 ml PO ACHS 12/20/19 12/20/19 History loratadine [Allergy Relief 10 mg PO DAILY 12/20/19 12/20/19 History (loratadine)] magnesium oxide 400 mg PO DAILY 12/20/19 12/20/19 History multivitamin 1 tab PO DAILY 12/20/19 12/20/19 History potassium chloride 10 meq PO DAILY 12/20/19 12/20/19 History rifaximin [Xifaxan] 550 mg PO BID 12/20/19 12/20/19 History spironolactone 50 mg PO DAILY 12/20/19 12/20/19 History Patient History Medical History Diabetes History of CVA (cerebrovascular accident) LENZ (nonalcoholic steatohepatitis) Social History Preferred Language: French Communication Ability: Effective 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 Beliefs That Will Affect Care: None Current Living Situation: Spouse Other Information That Helps Us Care for You: No Feels Safe at Home: Yes Safety Concerns: Feels Safe At This Time Smoking Status: Never smoker Do You Dip or Chew Tobacco: No ; Second Hand Exposure: No ; Tobacco Cessation Education Requested by Patient: No Hx Alcohol Use: No Hx Substance Use: No Review of Systems Review of Systems: Unobtainable due to cognitive status Exam (Neuro) Constitutional: + altered mental status and + disheveled; no acute distress Eyes: normal visual soriano by confrontation, PERRL, normal accommodation and EOM intact bilaterally; no fundoscopic abnormality, no nystagmus and no papilledema Cardiovascular: Vessels: normal carotid upstroke; no carotid bruit Neurologic: Oriented to:: Person and Place; negative Time Memory: Remote Intact; negative Short Term Intact Attention: negative Span Intact and Concentration Intact Language: Naming Objects and Repeating Phrases Speech Fluency: Slowed and Other; negative Dysarthria Speech Aphasia: negative Aphasia Fund of Knowledge: Past History and Vocabulary; negative Current Events Cranial Nerves: Normal II (Visual soriano full to confrontation, visual acuity normal), III, IV, (Pupils equal round reactive to light and accommodation, eye movements normal), V (Facial sensation intact), VII (There is no facial droop or weakness), VIII (Hearing intact), IX, X (Palate elevates to midline), XI (Shoulder shrug intact) and XII (Tongue protrudes to midline) Motor Strength: Normal Upper Extremities; negative Normal Lower Extremities (Mild weakness of the left lower extremity noted with decreased movement initiation, able to lift leg out of bed against gravity and against resistance.) and Pronator Drift Motor Tone: Normal Lower Extremities and Normal Upper Extremities Muscle Bulk/Involuntary Movements: No Involuntary Movements; negative Muscle Atrophy Sensation: Light Touch Intact, Pain/Temperature Intact, Vibration Intact and Proprioception Intact Coordination: Normal and Heel-Perez Abnormal Laterality: Left; negative Limited Balance, Dysdiadochokinesia and Finger-Nose Abnormal Deep Tendon Reflexes: Rt Triceps: 1+, Lt Triceps: 1+, Rt Biceps: 1+, Lt Biceps: 1+, Rt Brachioradialis: 1+, Lt Brachioradialis: 1+, Rt Patellar: 1+, Lt Patellar: 1+, Rt Ankle: 1+ and Lt Ankle: 1+ Special Tests: negative Babinski Present Details: Gait cannot be tested in the context of patient's current medical condition, fall risk. Results & Data ([facility]) Vital Signs (Past 12 Hours) Vital Signs Temp Pulse Pulse Resp BP Pulse Ox 12/21/19 08:00 37.0 C 74 18 91/50 L 93 12/21/19 03:54 37.1 C 72 17 101/56 L 97 12/20/19 23:42 36.6 C 69 17 114/55 L 98 12/20/19 23:10 77 Laboratory Results WBC 4.74, hemoglobin 10.1, hematocrit 28.6, platelet count 56, sodium 137, potassium 4.8, BUN 20, creatinine 1.45, glucose 183, hemoglobin A1c 12.6, calcium 8.0, ammonia 72.0, triglycerides 138, cholesterol 104, LDL 56, VLDL 28, HDL 20 Diagnostic Findings Imaging including CT of the head, CT angiography of the head and neck, and brain MRI reviewed and described in the history of present illness (including my direct image review of these studies.) An electrocardiogram reveals a normal sinus rhythm, 65 bpm. PG Care Time/CCT Total # of Minutes Spent Total Time Spent with Patient: Total time spent is greater than 50% in coordination of care (as documented) at patient's floor/unit and/or counseling patient: Coding Level of Care Code 19238 Initial Inpt Care Lvl 3 Diagnoses CVA (cerebral vascular accident) I63.9 Encephalopathy G93.40
--- NOTE | 2019-12-21 10:04 | Pharmacy Report ---
Glycemic Control Consultation - Date of Service December 21, 2019 - Scope Scope: Glycemic Pharmacist consulted for glycemic control and to write orders per [facility] inpatient glycemic control protocol. - Objective Weight: 95.3 kg Accuchecks BSG (last 24hrs): 12/20/19 12/20/19 12/21/19 13:30 22:31 04:28 Glucose 185 H POC Glucose 299 H 209 H 12/21/19 12/21/19 06:30 07:42 Glucose 183 H POC Glucose 181 H Laboratory Data (last 24hrs): 12/20/19 12/21/19 13:30 06:30 Potassium 5.0 4.8 Carbon Dioxide 21 22 Anion Gap 7.0 5.0 Creatinine 1.50 H 1.45 H Est Cr Clr Drug Dosing 51.7 52.6 HbA1c: Hemoglobin A1c 12.6 % (4.5-5.6) H 12/21/19 06:30 - Recent Pertinent Medications Outpatient Anti-diabetic Regimen: * Insulin 70/30 - 24 units BIDM + Novolog sliding scale * A1c = 12.6 % (12/21/19) - Assessment & Plan Assessment & Plan: ASSESSMENT: * JEROME is a 74 year old male presenting with encephalopathy - subsequently diagnosed with ischemic stroke * Patient received Lantus 15 units x 1 yesterday * Does not appear that patient received AM dose of 70/30 at home prior to admission * Fasting BSG this morning of 209 mg/dL * A1c of 12.6% demonstrates poor outpatient control of diabetes PLAN FOR INPATIENT GLYCEMIC CONTROL: * Basal insulin * NPH 16 units SQ BID - based on NPH component of home regimen * Bolus insulin * NovoLog per scale ACHS or Q6hrs while NPO * Goal Range: Low 110 mg/dL - High 140 mg/dL * Correction Factor: 20 mg/dL/unit * Nutritional / Prandial insulin per carb ratio of 1 unit per 7 grams CHO consumed * Please note that the plan above was derived based on current level of insulin resistance and hospital stress. These recommendations are appropriate for inpatient admission only. Plan of care upon discharge will need to be reassessed to avoid potential outpatient hypo/hyperglycemia. Thank you.
--- NOTE | 2019-12-21 18:48 | Hospitalist Progress Note ---
Date of Service December 21, 2019 Assessment & Plan (1) CVA (cerebral vascular accident): Patient admitted with altered mental status and found to have an acute right-sided pontine stroke on brain MRI today which likely accounts for his confusion and mild left-sided weakness CT angiogram of the neck negative CT angiogram of the head negative The 1.5 cm age-indeterminate lesion in the left temporal lobe seen on CT appears to be an old infarct with minimal old blood products on brain MRI Also with multiple lacunar infarcts -Likely thrombotic -Continue aspirin -Increased atorvastatin 80 mg daily -Needs much improved diabetes control as below -Blood pressures are controlled -Check echocardiogram -Continue telemetry monitoring no arrhythmias so far -Appreciate neurology consultation -Neurochecks PT/OT/speech therapy consults placed -May need rehab placement (2) Encephalopathy: Likely secondary to acute stroke as above, but also in the setting of cirrhosis and hyperammonemia Improved mental status today as per patient's Infectious etiologies have been evaluated with a negative urinalysis and negative chest x-ray on presentation and negative clinical examination. (3) LOMBARDO (nonalcoholic steatohepatitis): Patient reportedly with less stool output than usual and ammonia level is elevated. Ammonia level about the same as yesterday but mental status is improved Still no bowel movement today -Continued on Xifaxan 550 twice daily and lactulose 4 times daily -Continue Spironolactone 50 MG daily and Lasix 40 mg daily Patient with elevation of his INR at baseline 1.4 stable from previous. He also has elevation of both direct and indirect bilirubin -Needs routine follow-up with GI as an outpatient for HCC screening, variceal screening etc. -No evidence of SBP clinically (4) Diabetes: A1c severely uncontrolled at 12.6% Likely contributing to multiple strokes noted -Stressed importance of control to the patient and his at the bedside -Pharmacy is managing glucose Continue insulin regimen as per pharmacy (5) Thrombocytopenia: Platelets mildly less than yesterday in the 50s Likely secondary to cirrhosis -Follow CBC (6) Anemia: Likely secondary to chronic disease -Check iron studies, B12, folate in the morning Hemoccult stool -Follow CBC (7) CKD (chronic kidney disease) stage 3, GFR 30-59 ml/min: Creatinine here at 1.45, unclear what baseline is is no previous labs to compare to -Avoid nephrotoxins -renally dose meds when appropriate -follow BMP (8) DVT prophylaxis: Given the patient's INR is 1.4 and platelets low, will choose not to use chemoprophylaxis at this time but use SCDs Disposition-continued stay on PCU Awaiting PT/OT consults, may need rehab placement Admission and Anticipated Discharge Date Admission Date: December 20, 2019 Subjective Patient has no complaints. When asked if he feels better today, he nods his head yes and continues to eat his dinner. His is at the bedside and reports he is improved with his mental status today. He has some residual weakness on the left side as per nursing but the patient does not complain of this. Patient denies chest pain or shortness of breath, no abdominal pain or nausea. He has not yet had a bowel movement today. Telemetry with normal sinus rhythm with rates in the 70s Review of Systems Review of Systems: All systems reviewed & are unremarkable except as noted in HPI & below Physical Exam Constitutional: WD/WN, vitals as above Eyes: + anicteric sclerae ENMT: Ears: no hearing impairment Neck: trachea midline, no thyromegaly Respiratory: normal respiratory effort, lungs clear to auscultation Cardiovascular: Rate/Rhythm: regular rate and regular rhythm Heart Sounds: no murmur Extremities: + edema (Trace edema of the legs to the knees bilaterally) Chest (Breasts): Chest: normal inspection of chest Gastrointestinal (Abdomen): normal bowel sounds, soft, nontender, no hepatosplenomegaly Musculoskeletal: Extremities: extremities normal to inspection; no cyanosis and no clubbing Skin: no rashes, warm and dry Neurologic: moves all extremities and awake Psychiatric: Orientation: alert, oriented to person, oriented to place and cooperative Lymphatic: no lymphedema Results & Data Results & Data ([facility]) Vital Signs (Past 12 Hours) Vital Signs Temp Pulse Pulse Resp BP Pulse Ox 12/21/19 16:00 69 12/21/19 15:44 36.9 C 71 20 114/65 97 12/21/19 11:51 36.6 C 79 17 108/63 98 12/21/19 08:00 37.0 C 77 74 18 91/50 L 93 Laboratory Results 12/21/19 12/21/19 12/21/19 Range/Units 16:12 11:28 07:42 WBC (4.8-10.8) K/uL RBC (4.7-6.1) M/uL Hgb (14.0-18.0) g/dL Hct (42-52) % MCV (80-100) fL MCH (25-34) pg MCHC (32-36) g/dL RDW Std Deviation (36.4-46.3) fL RDW Coeff of Harmony (11.5-14.5) % Plt Count (130-400) K/uL MPV (7.4-10.4) fL Immature Gran % (Auto) % Neut % (Auto) % Lymph % (Auto) % [place] % (Auto) % Eos % (Auto) % Baso % (Auto) % Neut # (Auto) (1.4-6.5) K/uL Lymph # (Auto) (1.2-3.4) K/uL [place] # (Auto) (0.11-0.59) K/uL Eos # (Auto) (0-0.5) K/uL Baso # (Auto) (0-0.2) K/uL Immature Gran # (Auto) (0.00-0.02) K/uL PT (9.0-12.0) Seconds INR (0.9-1.1) Sodium (136-145) mmol/L Potassium (3.5-5.1) mmol/L Chloride (98-107) mmol/L Carbon Dioxide (21-32) mmol/L Anion Gap (3-11) BUN (7-18) mg/dl Creatinine (0.6-1.4) mg/dl Est Cr Clr Drug Dosing ml/min Est GFR ( Amer) Est GFR (Non-Af Amer) BUN/Creatinine Ratio (10-20) Glucose (70-99) mg/dl POC Glucose 256 H 238 H 181 H (70-99) mg/dl Estimat Average Glucose mg/dl Hemoglobin A1c (4.5-5.6) % Calcium (8.5-10.1) mg/dl Ammonia (11-32) umol/L Triglycerides (0-150) mg/dl Cholesterol (0-200) mg/dl LDL Cholesterol, Calc mg/dl VLDL Cholesterol, Calc mg/dl HDL Cholesterol mg/dl Cholesterol/HDL Ratio 12/21/19 12/21/19 12/21/19 Range/Units 06:30 06:30 06:30 WBC (4.8-10.8) K/uL RBC (4.7-6.1) M/uL Hgb (14.0-18.0) g/dL Hct (42-52) % MCV (80-100) fL MCH (25-34) pg MCHC (32-36) g/dL RDW Std Deviation (36.4-46.3) fL RDW Coeff of Harmony (11.5-14.5) % Plt Count (130-400) K/uL MPV (7.4-10.4) fL Immature Gran % (Auto) % Neut % (Auto) % Lymph % (Auto) % [place] % (Auto) % Eos % (Auto) % Baso % (Auto) % Neut # (Auto) (1.4-6.5) K/uL Lymph # (Auto) (1.2-3.4) K/uL [place] # (Auto) (0.11-0.59) K/uL Eos # (Auto) (0-0.5) K/uL Baso # (Auto) (0-0.2) K/uL Immature Gran # (Auto) (0.00-0.02) K/uL PT (9.0-12.0) Seconds INR (0.9-1.1) Sodium 137 (136-145) mmol/L Potassium 4.8 (3.5-5.1) mmol/L Chloride 110 H (98-107) mmol/L Carbon Dioxide 22 (21-32) mmol/L Anion Gap 5.0 (3-11) BUN 20 H (7-18) mg/dl Creatinine 1.45 H (0.6-1.4) mg/dl Est Cr Clr Drug Dosing 52.6 ml/min Est GFR ( Amer) 55.0 Est GFR (Non-Af Amer) 47.4 BUN/Creatinine Ratio 13.9 (10-20) Glucose 183 H (70-99) mg/dl POC Glucose (70-99) mg/dl Estimat Average Glucose 315 mg/dl Hemoglobin A1c 12.6 H (4.5-5.6) % Calcium 8.0 L (8.5-10.1) mg/dl Ammonia 72.0 H (11-32) umol/L Triglycerides 138 (0-150) mg/dl Cholesterol 104 (0-200) mg/dl LDL Cholesterol, Calc 56 mg/dl VLDL Cholesterol, Calc 28 mg/dl HDL Cholesterol 20 mg/dl Cholesterol/HDL Ratio 5 12/21/19 12/21/19 12/21/19 Range/Units 06:30 06:30 04:28 WBC 4.74 L (4.8-10.8) K/uL RBC 3.18 L (4.7-6.1) M/uL Hgb 10.1 L (14.0-18.0) g/dL Hct 28.6 L (42-52) % MCV 89.9 (80-100) fL MCH 31.8 (25-34) pg MCHC 35.3 (32-36) g/dL RDW Std Deviation 52.6 H (36.4-46.3) fL RDW Coeff of Harmony 16.1 H (11.5-14.5) % Plt Count 56 L (130-400) K/uL MPV 10.2 (7.4-10.4) fL Immature Gran % (Auto) 0.2 % Neut % (Auto) 60.0 % Lymph % (Auto) 27.0 % [place] % (Auto) 8.6 % Eos % (Auto) 3.8 % Baso % (Auto) 0.4 % Neut # (Auto) 2.84 (1.4-6.5) K/uL Lymph # (Auto) 1.28 (1.2-3.4) K/uL [place] # (Auto) 0.41 (0.11-0.59) K/uL Eos # (Auto) 0.18 (0-0.5) K/uL Baso # (Auto) 0.02 (0-0.2) K/uL Immature Gran # (Auto) 0.01 (0.00-0.02) K/uL PT 14.4 H (9.0-12.0) Seconds INR 1.4 H (0.9-1.1) Sodium (136-145) mmol/L Potassium (3.5-5.1) mmol/L Chloride (98-107) mmol/L Carbon Dioxide (21-32) mmol/L Anion Gap (3-11) BUN (7-18) mg/dl Creatinine (0.6-1.4) mg/dl Est Cr Clr Drug Dosing ml/min Est GFR ( Amer) Est GFR (Non-Af Amer) BUN/Creatinine Ratio (10-20) Glucose (70-99) mg/dl POC Glucose 209 H (70-99) mg/dl Estimat Average Glucose mg/dl Hemoglobin A1c (4.5-5.6) % Calcium (8.5-10.1) mg/dl Ammonia (11-32) umol/L Triglycerides (0-150) mg/dl Cholesterol (0-200) mg/dl LDL Cholesterol, Calc mg/dl VLDL Cholesterol, Calc mg/dl HDL Cholesterol mg/dl Cholesterol/HDL Ratio 12/20/19 12/20/19 12/20/19 Range/Units 22:31 19:11 19:11 WBC (4.8-10.8) K/uL RBC (4.7-6.1) M/uL Hgb (14.0-18.0) g/dL Hct (42-52) % MCV (80-100) fL MCH (25-34) pg MCHC (32-36) g/dL RDW Std Deviation (36.4-46.3) fL RDW Coeff of Harmony (11.5-14.5) % Plt Count (130-400) K/uL MPV (7.4-10.4) fL Immature Gran % (Auto) % Neut % (Auto) % Lymph % (Auto) % [place] % (Auto) % Eos % (Auto) % Baso % (Auto) % Neut # (Auto) (1.4-6.5) K/uL Lymph # (Auto) (1.2-3.4) K/uL [place] # (Auto) (0.11-0.59) K/uL Eos # (Auto) (0-0.5) K/uL Baso # (Auto) (0-0.2) K/uL Immature Gran # (Auto) (0.00-0.02) K/uL PT (9.0-12.0) Seconds INR (0.9-1.1) Sodium (136-145) mmol/L Potassium (3.5-5.1) mmol/L Chloride (98-107) mmol/L Carbon Dioxide (21-32) mmol/L Anion Gap (3-11) BUN (7-18) mg/dl Creatinine (0.6-1.4) mg/dl Est Cr Clr Drug Dosing ml/min Est GFR ( Amer) Est GFR (Non-Af Amer) BUN/Creatinine Ratio (10-20) Glucose (70-99) mg/dl POC Glucose 299 H (70-99) mg/dl Estimat Average Glucose 315 mg/dl Hemoglobin A1c 12.6 H (4.5-5.6) % Calcium (8.5-10.1) mg/dl Ammonia 67.5 H (11-32) umol/L Triglycerides (0-150) mg/dl Cholesterol (0-200) mg/dl LDL Cholesterol, Calc mg/dl VLDL Cholesterol, Calc mg/dl HDL Cholesterol mg/dl Cholesterol/HDL Ratio Diagnostic Findings IMPRESSION: 1. 6 mm focus of signal abnormality within the right aspect of the tian. This suggests a small acute to subacute pontine infarct. 2. 1.8 cm T2 hyperintense focus within the posterior left temporal lobe which corresponds to the finding on prior head CT. This represents an old infarct with minimal old blood products. 3. Multiple subcortical white matter T2 hyperintense foci. These are indeterminate but probably reflect old infarcts. 4. Multiple old infarcts within the bilateral cerebral hemispheres. PG Care Time/CCT Total # of Minutes Spent Total Time Spent with Patient: Total time spent is greater than 50% in coordination of care (as documented) at patient's floor/unit and/or counseling patient: Coding Level of Care Code 04234 Subseq Hosp Care Lvl 3 Diagnoses CVA (cerebral vascular accident) I63.9 Encephalopathy G93.40 LOMBARDO (nonalcoholic steatohepatitis) K75.81 Diabetes E11.9 Thrombocytopenia D69.6 Anemia D64.9 CKD (chronic kidney disease) stage 3, GFR 30-59 ml/min N18.3 DVT prophylaxis Z29.9
[2019-12-21] MEDS: ATORVASTATIN 40 MG TAB PO SCH (21:12)
[2019-12-22 07:11] LABS: Hematocrit (blood only) 30.1 % (42-52); Hemoglobin 10.5 g/dL (14.0-18.0); Mean Corpuscular Hemoglobin 31.2 pg (25-34); Mean Corpuscular Hgb Conc 34.9 g/dL (32-36); Mean Corpuscular Volume 89.3 fL (80-100); RDW Standard Deviation 52.7 fL (36.4-46.3); Red Blood Count 3.37 M/uL (4.7-6.1)
[2019-12-22 07:20] LABS: Mean Platelet Volume 10.3 fL (7.4-10.4); Platelet Count 63 K/uL (130-400)
[2019-12-22 07:23] LABS: INR 1.4 (0.9-1.1); Prothrombin Time 14.1 Seconds (9.0-12.0)
[2019-12-22 07:41] LABS: Albumin Level 1.7 gm/dl (3.4-5.0); Creatinine Clr Calc Pharmacy 51.6 ml/min; Est GFR (African American) 53.6; Est GFR (Non-African American) 46.3; Potassium 4.7 mmol/L (3.5-5.1)
[2019-12-22 07:48] LABS: Bilirubin Direct 1.3 mg/dl (0-0.2); Bilirubin,Total 2.3 mg/dl (0.2-1); Ferritin 185.1 ng/ml (8-388)
[2019-12-22 07:53] LABS: Basophils # (auto) 0.03 K/uL (0-0.2); Basophils % (auto) 0.5 %; Eosinophils # (auto) 0.25 K/uL (0-0.5); Eosinophils % (auto) 4.5 %; Immature Granulocytes # (auto) 0.01 K/uL (0.00-0.02); Immature Granulocytes % (auto) 0.2 %; Lymphocytes # (auto) 1.99 K/uL (1.2-3.4); Lymphocytes % (auto) 36.2 %; Monocytes # (auto) 0.44 K/uL (0.11-0.59); Neutrophils # (auto) 2.78 K/uL (1.4-6.5); Neutrophils % (auto) 50.6 %
[2019-12-22 08:29] LABS: Folate (Folic Acid) 19.09 ng/ml (>5.38); Vitamin B12 > 2000 pg/ml (211-911)
[2019-12-22] MEDS: INSULIN ASPART 100 UNITS/ML 3 ML PEN SC SCH ×3 (08:38→17:07)
[2019-12-22] MEDS: LACTULOSE SYRUP 30 GM/45 ML UDP PO SCH ×3 (08:39→17:07)
[2019-12-22] MEDS: INSULIN HUMAN NPH SC SCH ×2 (08:39→17:08)
[2019-12-22] MEDS: FUROSEMIDE 40 MG TAB PO SCH (08:40)
[2019-12-22] MEDS: PANTOprazole 40 MG TAB PO SCH (08:40)
[2019-12-22] MEDS: SPIRONOLACTONE 25 MG TAB PO SCH (08:40)
[2019-12-22] MEDS: MULTIVITAMIN TAB PO SCH (08:40)
[2019-12-22] MEDS: FERROUS SULFATE 325 MG TAB PO SCH (08:40)
[2019-12-22] MEDS: ASPIRIN 81 MG ECTAB PO SCH (08:40)
[2019-12-22] MEDS: RIFAXIMIN 550 MG TABLET PO SCH (08:40)
[2019-12-22] MEDS: MAGNESIUM OXIDE 400 MG TAB PO SCH (08:40)
--- NOTE | 2019-12-22 09:22 | Pharmacy Report ---
Pharmacy Glycemic Short Note 2 - Date of Service December 22, 2019 - Glycemic Short BSG Results (Last 24 hours): 12/21/19 12/21/19 12/21/19 11:28 16:12 20:02 Glucose POC Glucose 238 H 256 H 247 H 12/22/19 12/22/19 06:56 07:00 Glucose 109 H POC Glucose 129 H OUTPATIENT ANTIDIABETIC REGIMEN: * Novolog mix 70/30 - 24 units BIDM * Novolog sliding scale * HbA1c: 12.6% (12/21/19) ASSESSMENT: * JEROME is a 74 year old male with acute/subacute CVA - ischemic infarct within the right tian * BSGs elevated yesterday - ranging 181-256 mg/dL * Patient received 69 units of insulin (32 of NPH, 37 of correctio nal/prandial) * Will tighten Novolog * Fasting BSG this morning of 129 mg/dL * Will maintain current NPH doses PLAN FOR INPATIENT GLYCEMIC CONTROL: * Basal insulin - continue * NPH 16 units SQ BIDM * Bolus insulin - tighten * NovoLog per scale ACHS or Q6hrs while NPO * Goal Range: Low 110 mg/dL - High 140 mg/dL * Correction Factor: 15 mg/dL/unit * Nutritional / Prandial insulin per carb ratio of 1 unit per 6 grams CHO consumed PLAN FOR DISCHARGE: * HbA1c of 12.6% demonstrates poor outpatient glycemic control * Reasonable goal for this patient would be < 8% based on age and comorbidities * Will most likely require insulin dose adjustments - to be determined
--- NOTE | 2019-12-22 12:13 | XCELERA ---
[id number] [email or web address]\[id number]
[2019-12-22] MEDS ORDERED: STROKE PATIENT DISCHARGE STA (16:49)
--- NOTE | 2019-12-22 17:03 | Pharmacy Report ---
Pharmacist Stroke Counseling - Date of Service December 22, 2019 - Scope: Pharmacy has been consulted to provide medication discharge counseling for this patient admitted with [ischemic stroke] [hemorrhagic stroke] [transient ischemic attack] as per the Pharmacist Discharge Counseling for Stroke Patients Protocol . - Medications on Discharge: Home Medications Medication Instructions Recorded Confirmed aspirin [Aspir-81] 81 mg PO DAILY 12/20/19 12/20/19 atorvastatin 20 mg PO HS 12/20/19 12/20/19 esomeprazole magnesium [Nexium] 0 mg PO DAILY 12/20/19 12/20/19 ferrous sulfate 325 mg PO DAILY 12/20/19 12/20/19 furosemide 40 mg PO DAILY 12/20/19 12/20/19 insulin asp prt-insulin aspart 24 unit SUBCUT BID 12/20/19 12/20/19 [Novolog Mix 70-30FlexPen U-100] insulin aspart U-100 [Novolog 0 unit SUBCUT AC 12/20/19 12/20/19 Flexpen U-100 Insulin] lactulose 45 ml PO ACHS 12/20/19 12/20/19 loratadine [Allergy Relief 10 mg PO DAILY 12/20/19 12/20/19 (loratadine)] magnesium oxide 400 mg PO DAILY 12/20/19 12/20/19 multivitamin 1 tab PO DAILY 12/20/19 12/20/19 potassium chloride 10 meq PO DAILY 12/20/19 12/20/19 rifaximin [Xifaxan] 550 mg PO BID 12/20/19 12/20/19 spironolactone 50 mg PO DAILY 12/20/19 12/20/19 New Rx's Medication Instructions Recorded atorvastatin 40 mg PO HS #30 tab 12/22/19 - Action: The above medications, specifically ones for stroke treatment/prophylaxis, have been reviewed in detail with the patient and/or patient licensing representative(s) prior to discharge. This includes indication, common adverse reactions, drug interactions, and medication administration. Medication counseling has been employed using the teach-back method to ensure understanding. - Outcome: The patient and/or patient licensing representative(s) have demonstrated understanding of the medications. Additional comments: I spoke with the patient's who handles Bret[facility] medications. She did not have any questions about his medications. She plans to get his new prescription filled and will get a follow up appointment with Christiano's family doctor upon their return home (they are here on vacation). Thank you for allowing pharmacy to be involved in the care of this patient. Please call [phone] with any additional questions
--- NOTE | 2019-12-22 17:04 | Discharge Summary ---
Date of Service December 22, 2019 Admission HPI Per Admitting Provider 74-year-old gentleman with a past medical history of Lenz cirrhosis, hyperammonemia on lactulose, history of CVA presents emergency department accompanied by his for concern for increased confusion and difficulty with speech over the past 2 days while they have been at their camp over the past week. The reports he has been only having 1 bowel movement a day despite being on lactulose. She denies any fevers, chills, cough, congestion, nausea, vomiting, diarrhea, urinary symptoms. They deny any known contacts with individuals diagnosed with COVID-19. Patient is also diabetic typically taking 70/30 insulin 24 units twice daily with sliding scale NovoLog on top of this He does have subtle jaundice which the patient's reports is his baseline in the setting of his Lenz cirrhosis. Patient has an ammonia level of 81 does not know his normal baseline level. . UA negative for infection. CT of the head and neck was performed and demonstrates old lacunar infarcts in bilateral cerebellar hemispheres but also a 1.5 cm hypodensity in the posterior left temporal lobe that reflects a small age-indeterminate infarct which given the patient's symptoms over the past week could also be a contributing factor. Principal Diagnosis Acute ischemic CVA Uncontrolled diabetes mellitus II Discharge Exam Constitutional WD/WN, vitals as above Eyes + anicteric sclerae ENMT Ears: no hearing impairment Neck trachea midline, no thyromegaly Respiratory normal respiratory effort, lungs clear to auscultation Cardiovascular Rate/Rhythm: regular rate and regular rhythm Heart Sounds: no murmur Extremities: + edema (2+ edema to knees of legs bilat) Chest (Breasts) Chest: normal inspection of chest Gastrointestinal (Abdomen) normal bowel sounds, soft, nontender, no hepatosplenomegaly Musculoskeletal Extremities: no cyanosis and no clubbing Skin no rashes, warm and dry Neurologic CN's II-XI intact bilaterally, moves all extremities and awake; no focal motor deficits Speech / Cognition: + abnormal speech (has normal speech but slow to respond to questions) Motor/Sensory: no tremor and no sensory deficit Psychiatric Orientation: alert, oriented to person, oriented to place and cooperative Lymphatic no lymphedema Discharge Data Allergies Allergy/AdvReac Type Severity Reaction Status Date / Time pollen extracts Allergy Intermediate ITCHY Verified 12/20/19 15:10 EYES, SNEEZING, CONGESTION rofecoxib [From Vioxx] Allergy Unknown COULDN'T Verified 12/20/19 15:10 REMEMBER morphine AdvReac Intermediate Vomiting Verified 12/20/19 15:10 Consultations 12/20/19 16:14 ED Decision to Admit Stat 12/20/19 18:42 Consult Case Management - Discharge Planning Routine Consult Neurology Routine Ordered Studies 12/20/19 14:25 CT angio head w con Stat CT angio neck with con Stat CT head/brain wo con Stat CT ANGIOGRAM OF THE BRAIN CLINICAL HISTORY: Strokelike symptoms. COMPARISON STUDY: Unenhanced CT of the brain performed concurrently on 12/20/2019. TECHNIQUE: Following the IV administration of 119 cc of Optiray 320, CT angio gram of the brain was performed from the skull base to the vertex. Images are reviewed in the axial, sagittal, and coronal planes. 3-D MIPS images are created and assessed. IV contrast was administered without complication. A dose lowering technique was utilized adhering to the principles of ALARA. CT DOSE: 1137.12 mGy.cm FINDINGS: Brain parenchyma: There is age-related involutional change noting mild subcortical and periventricular microangiopathic disease. Chronic lacunar infarcts are noted in the cerebellum. There is no hemorrhage, mass effect, or evidence of acute territorial ischemia by CT criteria. There is no evidence of enhancing mass lesion on the angiogram phase images. No extra-axial fluid collection is seen. Whitman-white matter differentiation is preserved. Ventricles, sulci, and cisterns: Prominent secondary to involutional change. CT angiogram of the brain: There is atherosclerotic calcification of the cavernous carotid and vertebral arteries. The internal carotid arteries are widely patent, as are the anterior and middle cerebral arteries. The vertebrobasilar system and posterior cerebral arteries are widely patent. The left vertebral artery is dominant. There is no aneurysm, high-grade stenosis, or focal vessel cutoff identified throughout the intracranial circulation. Dural sinuses: Clear as visualized. Orbits: The bony orbits are intact. The orbital contents are normal as visualized noting bilateral ocular lens implants. Sinuses and mastoids: The visualized paranasal sinuses are clear. There are small mastoid effusions. Calvarium: Unremarkable. IMPRESSION: 1. There is no hemorrhage, mass effect, or evidence of acute territorial ischemia by CT criteria noting angiographic phase technique. 2. Unremarkable CT angiogram of the brain. 12/20/19 18:42 MR brain wo con Routine : MRI OF THE BRAIN WITHOUT CONTRAST CLINICAL HISTORY: Abnormal CT scan. Altered mental status. COMPARISON STUDY: Head CT and CTA of the head December 20, 2019 TECHNIQUE: Utilizing a 1.5 Vida magnet and dedicated coil, multiplanar, multiecho imaging of the brain was performed without IV contrast. FINDINGS: Note is made of a 6 mm hyperintense focus within the right central aspect of the tian shown on axial diffusion-weighted sequence image 7 of 46. Correlation with ADC map is difficult given its small size but this likely reflects a small acute to subacute infarct. There is corresponding T2 hyperintensity. No additional foci of restricted diffusion are noted. Ventricular system is unremarkable. Basilar cisterns are patent. There are no extra axial collections. 1.8 cm T2 hyperintense focus within the posterior left temporal lobe corresponds to the finding on prior head CT. This contains a hypointense focus on the gradient echo sequence suggestive of minimal old blood product. This represents an old infarct. There are old lacunar infarcts within the cerebellar hemispheres. Flow-voids for the major intracranial vessels are present. Note is made of moderate atrophy. Deep white matter T2 hyperintense foci suggest small vessel disease. There are scattered subcortical T2 hyperintense foci as well. IMPRESSION: 1. 6 mm focus of signal abnormality within the right aspect of the tian. This suggests a small acute to subacute pontine infarct. 2. 1.8 cm T2 hyperintense focus within the posterior left temporal lobe which corresponds to the finding on prior head CT. This represents an old infarct with minimal old blood products. 3. Multiple subcortical white matter T2 hyperintense foci. These are indeterminate but probably reflect old infarcts. 4. Multiple old infarcts within the bilateral cerebral hemispheres. Chest xray: SINGLE VIEW CHEST CLINICAL HISTORY: Change in mental status. FINDINGS: An AP, portable, upright chest radiograph is obtained. No prior studies are available for comparison at the time of dictation. The examination is degraded by portable technique and patient rotation. The heart is enlarged noting atherosclerotic calcification of the thoracic aorta. The pulmonary vasculature is noncongested. Atelectasis is seen at the lung bases. The lungs and pleural spaces are otherwise clear. No pneumothorax is seen. The skeletal structures are osteopenic. The bony thorax is grossly intact. Cholecystectomy clips are noted in the right upper quadrant. IMPRESSION: Cardiomegaly with no acute cardiopulmonary abnormality. Hospital Course (1) CVA (cerebral vascular accident): Patient admitted with altered mental status and found to have an acute rig ht-sided pontine stroke on brain MRI which likely accounts for his confusion and mild left-sided weakness CT angiogram of the neck negative CT angiogram of the head negative The 1.5 cm age-indeterminate lesion in the left temporal lobe seen on CT appears to be an old infarct with minimal old blood products on brain MRI Also with multiple lacunar infarcts seen on MRI -Likely thrombotic, with severely uncontrolled DMII -Continue aspirin -Increased atorvastatin to 40 mg daily -Needs much improved diabetes control as below -Blood pressures are controlled -Echocardiogram without ASD but couldn't assess for PFO, no thrombus and preserved EF noted - no arrhythmias noted on telemetry--> consider manager strategic development cardiac event monitoring after discharge--> will defer to PCP to arrange this as he is not f rom this area and is returning home withint the week -Appreciate neurology consultation PT/OT/speech therapy consults placed-strong enough to go home, was ambulating around the zazueta (2) Encephalopathy: Likely secondary to acute stroke as above, but also in the setting of cirrhosis and hyperammonemia mental status back to baseline by hospital day#2 as per patient's Infectious etiologies have been evaluated with a negative urinalysis and negative chest x-ray on presentation and negative clinical examination. Renal function mildly impaired but seems to be stable/at baseline had BMs with lactulose- says it is hard to get him to take the lactulose at times at home stressed importance of this (3) LENZ (nonalcoholic steatohepatitis): Stable -Continued on Xifaxan 550 twice daily and lactulose 4 times daily -Continue Spironolactone 50 MG daily and Lasix 40 mg daily Patient with elevation of his INR at baseline 1.4 stable from previous. He also has elevation of both direct and indirect bilirubin -Needs routine follow-up with GI as an outpatient for HCC screening, variceal screening etc. -No evidence of SBP clinically (4) Diabetes: A1c severely uncontrolled at 12.6% Likely contributing to multiple strokes noted -Stressed importance of control to the patient and his at the bedside -increase 70/30 up to 26 units bid and pt encouraged to cut down on carb intake ( says she notices a huge difference in his glucose when she doesn't let him eat sweets), and start checking glucose qac and qhs (was only checking in the AM) -needs close f/u with PCP (5) Thrombocytopenia: Platelets stable at 63k Likely secondary to cirrhosis -Follow CBC as outpt (6) Anemia: Likely secondary to chronic disease, hgb here 10.5 - iron studies normal, B12, folate normal--> anemia of chronic disease both renal and from liver dz no gross GI bleeding here -Follow CBC as outpt (7) CKD (chronic kidney disease) stage 3, GFR 30-59 ml/min: Creatinine here at 1.45, unclear what baseline is is no previous labs to compare to, but was stable 3 days in a row here -Avoid nephrotoxins -renally dose meds when appropriate -follow BMP as outpt (8) DVT prophylaxis: Given the patient's INR is 1.4 and platelets low, will choose not to use chemoprophylaxis at this time but use SCDs Disposition-stable for dc to home with home health to be arranged through PCP as he lives quite far away from here Total Time Total Time Spent Total Time Spent (In Minutes): >30 min Total Time Includes: Examination of the Patient, Discharge Planning and Medication Reconciliation Discharge Plan Discharge Items Patient Disposition: Home - Home Health Services Reason For Visit: ENCEPHALOPATHY,SUBACUTE STROKE,ELEVATED AMMONIA Discharge Diagnosis: Acute ischemic CVA Condition on Discharge: Fair Activity: As commented below Lifting: Gradually increase as tolerated Bathing: No limitations Exercise/Sports: Gradually increase as tolerated Exercise Comment: with home PT/OT Weightbearing: Full weightbearing Non-emergency contact: Primary Care Provider Call non-emergency contact if: you have any medication questions and your symptoms worsen Follow-up/Referrals: PCP,NO [Primary Care Provider] - Diet: Carb Consistent or DM2 and Heart Healthy Addtl Attending Provider Instructions: You were admitted with confusion and found to have a new stroke in a part of the brain called the tian. You had improvement in your symptoms. Your atorvastatin will be increased to 40mg daily and your insulin will be increased as well to 26 units twice a day. The cause of your stroke is most likely due to your severely uncontrolled diabetes. It is important to check your blood sugars before each meal and at bedtime. Please have close follow up with your PCP within the next week. Risk Factors for Stroke: You can reduce your chances of stroke by working with your medical provider to adopt a healthy lifestyle. Some specific ways to lower your chance of stroke are: * If you are a smoker, now is the time to stop smoking cigarettes * If you are diabetic, improve the control of your blood sugars * Avoid excessive amounts of alcohol * Control high blood pressure * Lose weight if you are overweight * Be sure to lead an active lifestyle * Eat a healthy diet low in salt, cholesterol and fat You should know about other risk factors for stroke that you are unable to control. These include: * Age 55 years or older * Male gender * Certain racial groups: , or / * Family History of Stroke, Mini stroke or Heart Attack * Sickle Cell Disease Follow Up: It is important for you to keep your follow up appointments with your medical provider. Who to Call and When: Medical Emergencies: Call 911 immediately if you experience any of the following warning signs and symptoms of Stroke: * Sudden numbness or weakness of the face, arm or leg, especially on one side of the body * Sudden confusion, trouble speaking or understanding * Sudden trouble seeing in one or both eyes * Sudden trouble walking, dizziness, loss of balance or coordination * Sudden severe headache with no cause Do not delay calling 911 if you experience any warning signs or symptoms of a stroke. Delay in seeking medical attention may affect what treatments can be given to you. . Pending Studies at Discharge: No Stand-Alone Forms: My [facility], Smoking Cessation Medications and DC Order Prescriptions: New atorvastatin 40 mg Tablet 40 mg PO HS Qty: 30 RF: 0 Continued multivitamin Tablet 1 tab PO DAILY RF: 0 furosemide 40 mg tablet 40 mg PO DAILY RF: 0 potassium chloride 10 mEq Tablet Extended Release 10 meq PO DAILY RF: 0 aspirin [Aspir-81] 81 mg Tablet,Delayed Release (Dr/Ec) 81 mg PO DAILY RF: 0 spironolactone 25 mg tablet 50 mg PO DAILY RF: 0 magnesium oxide 400 mg (241.3 mg magnesium) tablet 400 mg PO DAILY RF: 0 ferrous sulfate 325 mg (65 mg iron) tablet 325 mg PO DAILY RF: 0 loratadine [Allergy Relief (loratadine)] 10 mg Tablet 10 mg PO DAILY RF: 0 esomeprazole magnesium [Nexium] 20 mg Capsule,Delayed Release(Dr/Ec) 0 mg PO DAILY RF: 0 insulin aspart U-100 [Novolog Flexpen U-100 Insulin] 100 unit/mL (3 mL) insulin pen 0 unit SUBCUT AC RF: 0 lactulose 10 gram/15 mL solution 45 ml PO ACHS RF: 0 Xifaxan 550 mg tablet 550 mg PO BID RF: 0 Changed insulin asp prt-insulin aspart [Novolog Mix 70-30FlexPen U-100] 100 unit/mL (70-30) insulin pen 26 unit SUBCUT BID Qty: 0 RF: 0 Discontinued atorvastatin 20 mg Tablet 20 mg PO HS RF: 0 Discharge Orders: Discharge Order (Routine); Ordered 12/22/19 Ordered By: Danni York Admission Data Admit Date/Time: 12/20/19 16:35 Attending Provider: Danni York Admit Provider: Kayden Ocampo Primary Care Provider: PCP,NO Other Providers: Kayden Ocampo ; Jam Alvarez Coding Level of Care Code D/C Day Management >30 mins Diagnoses CVA (cerebral vascular accident) I63.9 Encephalopathy G93.40 LENZ (nonalcoholic steatohepatitis) K75.81 Diabetes E11.9 Thrombocytopenia D69.6 Anemia D64.9 CKD (chronic kidney disease) stage 3, GFR 30-59 ml/min N18.3 DVT prophylaxis Z29.9
--- NOTE | 2019-12-29 11:21 | Coding Query ---
CODING QUERY FOR UNCONTROLLED DIABETES To promote full compliance with coding requirements relating to patient care, provider participation is requested in all cases of remote coders uncertainty. Please assist us with the question(s) below: Coding Question: The term uncontrolled Diabetes was used throughout the record. To be able to code this diagnosis properly, could you please clarify the diagnosis below: ( ) Uncontrolled Diabetes meaning hypoglycemia ( x ) Uncontrolled Diabetes meaning hyperglycemia ( ) Other (please specify) Principal Diagnosis: "that condition established after study, to be chiefly responsible for occasioning the admission of the patient to the hospital for care." Co-Existing Principal Diagnosis: "when two or more diagnoses equally meet the criteria for principal diagnosis as determined by the circumstances of admission, diagnostic work up, and/or therapy provided, and the Alphabetic Index, Tabular List, or another coding guideline does not provide sequencing direction, any one of the diagnoses may be sequenced first." "When the physician has documented what appears to be a current diagnosis in the body of the record, but has not included the diagnosis in the final diagnostic statement, the physician should be asked whether the diagnosis should be added." (Source Coding [facility] 2 QTR90. p3-4) GERALDINE
== END 2019-12-22 18:13 | disposition home health service (06) | DRG 64 ==
LOC: ED 14:11 → 2S 16:35 → SUATTDRO 16:35 → 2S 18:26